=== PATIENT | female | born 1990 | race Caucasian/White ===

== ENCOUNTER → 2017-04-17 | Outpatient (CLI) | payer OTHER ==
[~2017-04-17] MED LIST: APRI28 PO; CEPH-571 PO; OMEP40CA41 PO; ONDA4TAB10 SL; ONDA4TAB7 SL; POTTAB2 PO; PRLSR20 PO; SULF800T23 PO
== END | disposition home or self-care (01) ==
LOC: C.LAB 23:44
DX: Z02.83 Encounter for blood-alcohol and blood-drug test (principal)

== ENCOUNTER 2017-05-14 19:05 | Emergency (ER) | payer SELFPAY ==
[~2017-05-14] VITALS: Ht 160 cm; Wt 49.3 kg
[~2017-05-14 19:05] MED LIST changes: -CEPH-571 PO; -OMEP40CA41 PO; -ONDA4TAB10 SL; -POTTAB2 PO; -SULF800T23 PO
[2017-05-14 19:06] VITALS: TEMP 36.3; Ht 160 cm; Wt 49.3 kg
[2017-05-14] MEDS ORDERED: ONDANSETRON INJ 2 MG/ML 2 ML VIAL IV STA (19:20)
[2017-05-14] MEDS ORDERED: KETOROLAC TROMETHAMINE 30 MG/ML VIAL IV STA (19:20)
[2017-05-14] MEDS ORDERED: CEFTRIAXONE SOD INJ 1 GM ADDVIAL IV STA (19:20)
[2017-05-14] MEDS ORDERED: SODIUM CHLORIDE 0.9% 1000ML 1,000 ML IV STA (19:20)
--- NOTE | 2017-05-14 19:35 | EMERGENCY ROOM VISIT NOTE ---
History Report prepared by Andree: Calderon Humphrey Under the Supervision of: Dr. Brett Brown M.D. First contact with patient: 19:13 Chief Complaint: URINARY SYMPTOMS Stated Complaint: KIDNEY INFECTION, NON STOP VOMITING History of Present Illness The patient is a 27 year old female who presents to the Emergency Room with complaints of constant lower back pain starting three days ago. She rates her discomfort as a 10/10 in severity. She states that she took Ibuprofen for her symptoms, but denies any relief of symptoms. The patient states that she has been vomiting starting three days ago as well. She reports that she has also been experiencing a burning sensation whenever she urinates. She states that she went to [facility] today where they sent her here due to a possible kidney infection. The patient reports that her LNMP was three weeks ago. She denies a possible , tampon retention, and abdominal pain. Source of History: patient Onset: three days ago Position: back (lower) Symptom Intensity: 10/10 Timing: constant Modifying Factors (Relieving): ibuprofen Associated Symptoms: + nausea, + vomiting, + urinary symptoms, No abdominal pain Review of Systems See HPI for pertinent positives & negatives. A total of 10 systems reviewed and were otherwise negative. Past Medical & Surgical Medical Problems: (1) ESOPHAGEAL REFLUX (2) TOBACCO USE DISORDER Family History Cancer Heart disease Hypertension Social History Smoking Status: Current Every Day Smoker Alcohol Use: occasionally Marital Status: in relationship Occupation Status: employed, [employer] student Current/Historical Medications Scheduled Ondasetron Odt (Zofran Odt), 4 MG SL Q6H Sulfa/Trimethoprim (Bactrim Ds 800MG/160MG), 1 TAB PO BID Allergies Coded Allergies: No Known Allergies (Unverified , 03/23/12) Physical Exam Vital Signs Date Time Temp Pulse Resp B/P (MAP) Pulse Ox O2 Delivery O2 Flow Rate FiO2 05/14/17 21:18 62 18 118/60 97 05/14/17 20:34 84 18 118/70 05/14/17 19:38 100 05/14/17 19:06 36.3 126 18 132/77 95 Room Air Physical Exam GENERAL: Patient is a healthy-appearing well-nourished 27 year old female. HEAD: Normocephalic atraumatic EYES: Ocular movements intact pupils equal and react to light OROPHARYNX mucous membranes are moist no exudates present no erythema or edema present NECK: Supple no nuchal rigidity CHEST: Good equal expansion LUNGS: Clear and equal to auscultation CARDIAC: Normal S1 and S2 ABDOMEN: Soft nontender no guarding BACK: Positive right CVA tenderness EXTREMITIES: No pain upon palpation normal muscle strength in all groups no clubbing cyanosis or edema NEURO: Patient is following commands and answering questions appropriately. Alert and oriented x3 Cranial Nerves 2-12 grossly intact Medical Decision & Procedures ER Provider Diagnostic Interpretation: Radiology results as stated below per my review and radiologist interpretation: (RENAL)RETROPERITONEA COMP HISTORY: Pain Pt c/o b/l flank pain COMPARISON: None. FINDINGS: Right kidney: Maximum dimension of 1.4 cm. No evidence for hydronephrosis. Normal corticomedullary differentiation and cortical thickness. Left kidney: Maximum dimension 10.7 cm. No evidence for hydronephrosis. Normal corticomedullary differentiation and cortical thickness. Bladder: No bladder wall thickening. The bilateral ureteral jets were identified. IMPRESSION: Normal renal ultrasound. The above report was generated using voice recognition software. It may contain grammatical, syntax or spelling errors. Electronically signed by: Betito Mcmullen M.D. 05/14/2017 8:28 PM Dictated Date/Time: 05/14/2017 8:27 PM KUB CLINICAL HISTORY: Pt c/o b/l flank pain pain COMPARISON STUDY: No previous studies for comparison. FINDINGS: The soft tissues, psoas shadows, renal outlines and intestinal gas pattern appear normal. There is no evidence for bowel obstruction. No abnormal abdominal calcifications are seen. IMPRESSION: Normal study. The above report was generated using voice recognition software. It may contain grammatical, syntax or spelling errors. Electronically signed by: Betito Mcmullen M.D. 05/14/2017 8:36 PM Dictated Date/Time: 05/14/2017 8:36 PM Laboratory Results 05/14/17 19:28 Red Blood Count 4.54, Mean Corpuscular Volume 94.7, Mean Corpuscular Hemoglobin 33.0, Mean Corpuscular Hemoglobin Concent 34.9, Mean Platelet Volume 10.8, Neutrophils (%) (Auto) 84.9, Lymphocytes (%) (Auto) 4.1, Monocytes (%) (Auto) 10.6, Eosinophils (%) (Auto) 0.0, Basophils (%) (Auto) 0.1, Neutrophils # (Auto ) 17.55, Lymphocytes # (Auto) 0.85, Monocytes # (Auto) 2.20, Eosinophils # (Auto ) 0.00, Basophils # (Auto) 0.02 05/14/17 19:28 Test 05/14/17 19:15 05/14/17 19:28 Urine Color DK YELLOW Urine Appearance CLOUDY (CLEAR) Urine pH 5.5 (4.5-7.5) Urine Specific [place] 1.016 (1.000-1.030) Urine Protein 2+ (NEG) Urine Glucose (UA) NEG (NEG) Urine Ketones 3+ (NEG) Urine Occult Blood 2+ (NEG) Urine Nitrite NEG (NEG) Urine Bilirubin NEG (NEG) Urine Urobilinogen NEG (NEG) Urine Leukocyte Esterase SMALL (NEG) Urine WBC (Auto) >30 /hpf (0-5) Urine RBC (Auto) 10-30 /hpf (0-4) Urine Hyaline Casts (Auto) 10-30 /lpf (0-5) Urine Epithelial Cells (Auto) >30 /lpf (0-5) Urine Bacteria (Auto) NEG (NEG) Urine Yeast (Auto) (NONE PRSENT) White Blood Count 20.69 K/uL (4.8-10.8) Red Blood Count 4.54 M/uL (4.2-5.4) Hemoglobin 15.0 g/dL (12.0-16.0) Hematocrit 43.0 % (37-47) Mean Corpuscular Volume 94.7 fL (80-100) Mean Corpuscular Hemoglobin 33.0 pg (25-34) Mean Corpuscular Hemoglobin Concent 34.9 g/dl (32-36) Platelet Count 268 K/uL (130-400) Mean Platelet Volume 10.8 fL (7.4-10.4) Neutrophils (%) (Auto) 84.9 % Lymphocytes (%) (Auto) 4.1 % Monocytes (%) (Auto) 10.6 % Eosinophils (%) (Auto) 0.0 % Basophils (%) (Auto) 0.1 % Neutrophils # (Auto) 17.55 K/uL (1.4-6.5) Lymphocytes # (Auto) 0.85 K/uL (1.2-3.4) Monocytes # (Auto) 2.20 K/uL (0.11-0.59) Eosinophils # (Auto) 0.00 K/uL (0-0.5) Basophils # (Auto) 0.02 K/uL (0-0.2) RDW Standard Deviation 39.7 fL (36.4-46.3) RDW Coefficient of Variation 11.6 % (11.5-14.5) Immature Granulocyte % (Auto) 0.3 % Immature Granulocyte # (Auto) 0.07 K/uL (0.00-0.02) Anion Gap 12.0 mmol/L (3-11) Est Creatinine Clear Calc Drug Dose 80.6 ml/min Estimated GFR () 113.6 Estimated GFR (Non- 98.0 BUN/Creatinine Ratio 22.8 (10-20) Calcium Level 9.8 mg/dl (8.5-10.1) Total Bilirubin 0.9 mg/dl (0.2-1) Direct Bilirubin 0.3 mg/dl (0-0.2) Aspartate Amino Transf (AST/SGOT) 21 U/L (15-37) Alanine Aminotransferase (ALT/SGPT) 33 U/L (12-78) Alkaline Phosphatase 89 U/L (45-117) Total Protein 8.5 gm/dl (6.4-8.2) Albumin 3.7 gm/dl (3.4-5.0) Lipase 127 U/L (73-393) Labs reviewed by ED physician. Medications Administered Medications (Trade) Dose Ordered Sig/Sydnie Route Start Time Stop Time Status Last Admin Dose Admin Sodium Chloride 1,000 ml @ 999 mls/hr Q1H1M STAT IV 05/14/17 19:20 05/14/17 20:20 DC 05/14/17 19:41 999 MLS/HR Ketorolac Tromethamine (Toradol Inj) 30 mg NOW STAT IV 05/14/17 19:20 05/14/17 19:23 DC 05/14/17 19:42 30 MG Ceftriaxone Sodium (Rocephin Inj) 1 gm NOW STAT IV 05/14/17 19:20 05/14/17 19:23 DC 05/14/17 19:41 1 GM Ondansetron HCl (Zofran Inj) 4 mg NOW STAT IV 05/14/17 19:20 05/14/17 19:23 DC 05/14/17 19:42 4 MG Acetaminophen (Tylenol Tab) 1,000 mg NOW STAT PO 05/14/17 19:56 05/14/17 19:57 DC 05/14/17 20:34 1,000 MG Trimethoprim/ Sulfamethoxazole (Septra Ds 800/ 160MG Tab) 1 tab NOW STAT PO 05/14/17 19:56 05/14/17 19:57 DC 05/14/17 19:56 1 TAB Ondansetron HCl (ZOFRAN ODT 4MG Home Pack) 1 homepack UD STAT PO 05/14/17 20:50 05/14/17 20:52 DC 05/14/17 21:14 1 HOMEPACK Trimethoprim/ Sulfamethoxazole (Sulfameth/ Trimeth Ds 800/ 160MG Home Pack) 1 homepack UD ONCE PO 05/14/17 21:00 05/14/17 21:01 DC 05/14/17 21:14 1 HOMEPACK ED Course 1919: Ordered Zofran Injection 4 mg IV, Rocephin Injection 1 gm IV, Toradol Injection 30 mg IV, Sodium Chloride 1000 ml @ 999 mls/hr IV. 1921: Past medical records reviewed. The patient was evaluated in room A12B. A complete history and physical examination was performed. 1955: Ordered Trimethoprim/Sulfamethoxazole 1 tab PO, Tylenol Tab 1000 mg PO. 2049: Ordered Ondansetron HCl 1 homepack PO. 2051: Upon reexamination the patient is doing well. I discussed results and treatment plan with the patient. She verbalizes agreement and understanding. The patient is ready for discharge. 2099: Ordered Trimethoprim/Sulfamethoxazole 1 homepack PO. Medical Decision The differential diagnosis includes etiologies such as appendicitis, diverticulitis, PUD, biliary pathology, UTI, pancreatitis, obstruction, mesenteric ischemia, aortic pathology, infections, inflammatory bowel disease, renal colic, as well as others were entertained. This is a 27-year-old female presents emergency department complaining of urinary symptoms. The patient is tachycardic upon arrival to emergency department therefore an IV was established, patient given normal saline bolus, Toradol, Rocephin. Repeat examination revealed much improved in the patient's symptoms. Patient was sent for KUB as well as renal ultrasound. This did not show any acute process. The patient is feeling much better after the pain medication. Serial abdominal examinations were performed on the patient in the emergency department and at no time did the patient exhibited a surgical abdomen. She was able tolerate Tylenol as well as Bactrim in the emergency department therefore I feel she is well enough to be discharged home. Her tachycardia also improved. I stressed the need to return if she is unable to keep her medications down. Patient was in agreement with treatment plan. Medication Reconcilliation Current Medication List: was personally reviewed by me Blood Pressure Screening Patient's blood pressure: Normal blood pressure Impression Primary Impression: Urinary tract infection Scribe Attestation The scribe's documentation has been prepared under my direction and personally reviewed by me in its entirety. I confirm that the note above accurately reflects all work, treatment, procedures, and medical decision making performed by me. Departure Information Dispostion Home / Self-Care Prescriptions Ondasetron Odt (ZOFRAN ODT) 4 Mg Tab 4 MG SL Q6H for Nausea, #6 TAB Prov: Brett Brown MD 05/14/17 Sulfa/Trimethoprim (Bactrim Ds 800MG/160MG) Tab 1 TAB PO BID for 10 Days, #20 TAB Prov: Brett Brown MD 05/14/17 Referrals No Doctor, Assigned (PCP) Forms HOME CARE DOCUMENTATION FORM, IMPORTANT VISIT INFORMATION Patient Instructions ED UTI Cystitis Female, My [facility] Additional Instructions Take 600 mg Ibuprofen every 6 hours Take 1000 mg TYlenol every 6 hours Increase fluids next 48 hours Culture results are usually available in approx 48 hours You have been examined and treated today on an emergency basis only. This is not a substitute for, or an effort to provide, complete comprehensive medical care. It is impossible to recognize and treat all injuries or illnesses in a single emergency department visit. It is therefore important that you follow up closely with [facility]. Call as soon as possible for an appointment. Thank you for your time and consideration. I look forward to speaking with you again soon. Please don't hesitate to call us if you have any questions. Problem Qualifiers Primary Impression: Urinary tract infection Urinary tract infection type: acute cystitis Hematuria presence: without hematuria Qualified Codes: N30.00 - Acute cystitis without hematuria
[2017-05-14 19:43] LABS: BASO % 0.1 %; BASO ABS # 0.02 K/uL (0-0.2); COMPLETE YES; IG% 0.3 %; LYMPH % 4.1 %; LYMPH ABS # 0.85 K/uL (1.2-3.4); MEAN CELL VOLUME 94.7 fL (80-100); MEAN CORPUSCULAR HGB CONC 34.9 g/dl (32-36); MEAN PLATELET VOLUME 10.8 fL (7.4-10.4); MONO % 10.6 %; NEUT % 84.9 %; PLATELET COUNT 268 K/uL (130-400); RED BLOOD COUNT 4.54 M/uL (4.2-5.4); WHITE BLOOD COUNT 20.69 K/uL (4.8-10.8)
[2017-05-14 19:53] LABS: URINE APPEARANCE CLOUDY (CLEAR); URINE BILIRUBIN NEG (NEG); URINE COLOR DK YELLOW; URINE EPITHELIAL CELL AUTO >30 /lpf (0-5); URINE NITRITE NEG (NEG); URINE PH 5.5 (4.5-7.5); URINE SPECIFIC GRAVITY 1.016 (1.000-1.030); UROBILINOGEN NEG (NEG); ZZUR CULT IF INDIC CLEAN CATCH YES
[2017-05-14 19:54] LABS: MANUAL MICROSCOPIC REQUIRED? NO; REVIEW REQ? YES
[2017-05-14] MEDS ORDERED: ACETAMINOPHEN 500 MG TAB PO STA (19:56)
[2017-05-14] MEDS ORDERED: SULFAMETHOXAZOLE/TRIMETHOPRIM DS 800/160MG TAB PO STA (19:56)
[2017-05-14 20:06] LABS: BUN/CREATININE RATIO 22.8 (10-20); CALCIUM 9.8 mg/dl (8.5-10.1); CREATININE 0.83 mg/dl (0.60-1.20); POTASSIUM 3.3 mmol/L (3.5-5.1)
--- NOTE | 2017-05-14 20:29 | DIAGNOSTIC IMAGING REPORT ---
(RENAL)RETROPERITONEA COMP HISTORY: Pain Pt c/o b/l flank pain COMPARISON: None. FINDINGS: Right kidney: Maximum dimension of 1.4 cm. No evidence for hydronephrosis. Normal corticomedullary differentiation and cortical thickness. Left kidney: Maximum dimension 10.7 cm. No evidence for hydronephrosis. Normal corticomedullary differentiation and cortical thickness. Bladder: No bladder wall thickening. The bilateral ureteral jets were identified. IMPRESSION: Normal renal ultrasound. The above report was generated using voice recognition software. It may contain grammatical, syntax or spelling errors. Electronically signed by: Betito Mcmullen M.D. 05/14/2017 8:28 PM Dictated Date/Time: 05/14/2017 8:27 PM
--- NOTE | 2017-05-14 20:38 | DIAGNOSTIC IMAGING REPORT ---
KUB CLINICAL HISTORY: Pt c/o b/l flank pain pain COMPARISON STUDY: No previous studies for comparison. FINDINGS: The soft tissues, psoas shadows, renal outlines and intestinal gas pattern appear normal. There is no evidence for bowel obstruction. No abnormal abdominal calcifications are seen. IMPRESSION: Normal study. The above report was generated using voice recognition software. It may contain grammatical, syntax or spelling errors. Electronically signed by: Betito Mcmullen M.D. 05/14/2017 8:36 PM Dictated Date/Time: 05/14/2017 8:36 PM
[2017-05-14] MEDS ORDERED: ONDANSETRON HOME PACK 4MG OD TAB PO STA (20:50)
[2017-05-14] MEDS ORDERED: ONDA4TAB10 SL (20:53)
[2017-05-14] MEDS ORDERED: SULF800T23 PO (20:53)
[2017-05-14] MEDS ORDERED: SEPTRA DS HOME PACK 1 EA VIAL PO ONE (21:00)
[2017-05-14 21:18] VITALS: BP 118/60; PULSE 62; O2SAT 97
== END 2017-05-14 21:20 | disposition home or self-care (01) ==
LOC: C.EDB 19:06 → C.EDA 21:20
DX: N30.00 Acute cystitis without hematuria (principal); K21.9 Gastro-esophageal reflux disease without esophagitis; F17.210 Nicotine dependence, cigarettes, uncomplicated; Z80.9 Family history of malignant neoplasm, unspecified; Z82.49 Family history of ischemic heart disease and other diseases of the circulatory system

== ENCOUNTER 2017-05-15 16:27 | Observation (INO) | payer BC, OTHER ==
[~2017-05-15] VITALS: Ht 157.5 cm; Wt 50.4 kg
[~2017-05-15 16:27] MED LIST changes: -APRI28 PO; +ONDA4TAB10 SL; -ONDA4TAB7 SL; -PRLSR20 PO; +SULF800T23 PO
[2017-05-15] MEDS ORDERED: SODIUM CHLORIDE 0.9% 1000ML 1,000 ML IV ONE (17:15)
[2017-05-15] MEDS ORDERED: ONDANSETRON INJ 2 MG/ML 2 ML VIAL IV STA (17:35)
[2017-05-15] MEDS ORDERED: KETOROLAC TROMETHAMINE 30 MG/ML VIAL IV STA (17:35)
[2017-05-15] MEDS ORDERED: CEFTRIAXONE SOD INJ 1 GM ADDVIAL IV STA (17:35)
[2017-05-15 17:36] LABS: URINE APPEARANCE CLEAR (CLEAR); URINE BILIRUBIN NEG (NEG); URINE COLOR YELLOW; URINE EPITHELIAL CELL AUTO >30 /lpf (0-5); URINE NITRITE NEG (NEG); URINE PH 8.5 (4.5-7.5); URINE SPECIFIC GRAVITY 1.015 (1.000-1.030); UROBILINOGEN POS (NEG); ZZUR CULT IF INDIC CLEAN CATCH YES
[2017-05-15] MEDS ORDERED: CAPSAICIN CR 0.075% 60 GM TUBE EXT ONE (17:45)
[2017-05-15 17:57] LABS: MANUAL MICROSCOPIC REQUIRED? NO; REVIEW REQ? NO; SULFASALICYLIC ACID POS (NEG)
[2017-05-15 18:09] LABS: BASO % 0.1 %; BASO ABS # 0.02 K/uL (0-0.2); COMPLETE YES; EOS % 0.1 %; HEMATOCRIT 39.9 % (37-47); IG% 0.4 %; LYMPH % 5.9 %; LYMPH ABS # 0.94 K/uL (1.2-3.4); MEAN CELL VOLUME 93.4 fL (80-100); MEAN CORPUSCULAR HEMOGLOBIN 32.6 pg (25-34); MEAN CORPUSCULAR HGB CONC 34.8 g/dl (32-36); MEAN PLATELET VOLUME 10.8 fL (7.4-10.4); MONO % 7.1 %; NEUT % 86.4 %; PLATELET COUNT 265 K/uL (130-400); RED BLOOD COUNT 4.27 M/uL (4.2-5.4); WHITE BLOOD COUNT 15.99 K/uL (4.8-10.8)
--- NOTE | 2017-05-15 18:10 | EMERGENCY ROOM VISIT NOTE ---
History First contact with patient: 16:52 Chief Complaint: VOMITING Stated Complaint: NON-STOP VOMITING,REVISIT Nursing Triage Summary: Vomiting started Night. Seen here in ED yesterday for UTI. Started feeling better yesterday. Today around 0700 began vomiting non-stop. Unable to keep food or fluids down. History of Present Illness The patient is a 27 year old female who presents to the Emergency Room with complaints of intractable vomiting. The patient was seen yesterday after suffering from three days of lower back pain and vomiting. She had received Rocephin and was discharged on Bactrim and Zofran. She has been taking her Bactrim as ordered. She notes that she was feeling well overnight and then this morning at approx 0700 she was once again suffering from intractable vomiting. She did not take her antibiotics today because of the vomiting. She has not been able to eat all day. She does not reflux from her vomiting however no chest pain. She denies any hematuria, change in bm, blood in stool, abdominal pain, fever, rash. She does note that she does smoke approx 1/2 PPD of cigarettes and approx 5 Grams of marijuana/ week. On review of the UA culture it revealed > 3 bacteria high count for probable skin joce and no sensitivities pending. There has actually been significant improvement in the back pain from yesterday. Review of Systems a 10 point review of systems was completed and was negative aside from above Past Medical/Surgical History Medical Problems: (1) ESOPHAGEAL REFLUX (2) TOBACCO USE DISORDER Family History Cancer Heart disease Hypertension Social History Smoking Status: Current Every Day Smoker Smokeless Tobacco Use: No Alcohol Use: occasionally Drug Use: marijuana (Heavy use, at least 5grams/ week) Marital Status: in relationship Housing Status: lives with significant other Occupation Status: employed Current/Historical Medications Scheduled Ondasetron Odt (Zofran Odt), 4 MG SL Q6H Sulfa/Trimethoprim (Bactrim Ds 800MG/160MG), 1 TAB PO BID Physical Exam Vital Signs Date Time Temp Pulse Resp B/P (MAP) Pulse Ox O2 Delivery O2 Flow Rate FiO2 05/15/17 19:54 64 18 132/80 99 Room Air 05/15/17 18:36 83 124/80 97 Room Air 05/15/17 16:48 36.5 92 20 121/82 99 Room Air Physical Exam General: ambulatory, tearful, thin Skin: no rashes noted, no suspicious lesions, no areas of inflammations/ lacerations/ erythema noted CVS: S1/ S2 noted, RRR, no rubs/ murmurs noted, no cyanosis RVS: Clear throughout bilaterally, not in acute respiratory distress, no wheezing/ rales/ crackles noted ENT: no erythema/ injection/ ulcerations noted in the pharynx, no lymphadenopathy Neck: inspection WNL, full ROM of neck, no bruits noted ABD: BSx4, mild pain/ tenderness on palpation in lower abd without rebound, no organomegaly, negative murphys, psoas, Rovsing, CVA tenderness MSK: inspection of all limbs WNL, motor and sensation intact in all limbs, no swelling/ pain on palpation of joints NVS: PERRL, EOMI, sensation intact in all extremities Lymph: No lymphadenopathy palpable Medical Decision & Procedures Laboratory Results 05/15/17 17:38 Red Blood Count 4.27, Mean Corpuscular Volume 93.4, Mean Corpuscular Hemoglobin 32.6, Mean Corpuscular Hemoglobin Concent 34.8, Mean Platelet Volume 10.8, Neutrophils (%) (Auto) 86.4, Lymphocytes (%) (Auto) 5.9, Monocytes (%) (Auto) 7.1, Eosinophils (%) (Auto) 0.1, Basophils (%) (Auto) 0.1, Neutrophils # (Auto) 13.83, Lymphocytes # (Auto) 0.94, Monocytes # (Auto) 1.13, Eosinophils # (Auto) 0.01, Basophils # (Auto) 0.02 05/15/17 17:38 Test 05/15/17 17:20 05/15/17 17:38 05/15/17 17:43 05/15/17 18:35 Urine Color YELLOW Urine Appearance CLEAR (CLEAR) Urine pH 8.5 (4.5-7.5) Urine Specific [place] 1.015 (1.000-1.030) Urine Protein 1+ (NEG) Urine Glucose (UA) NEG (NEG) Urine Ketones 2+ (NEG) Urine Occult Blood NEG (NEG) Urine Nitrite NEG (NEG) Urine Bilirubin NEG (NEG) Urine Urobilinogen POS (NEG) Urine Leukocyte Esterase MODERATE (NEG) Urine WBC (Auto) 10-30 /hpf (0-5) Urine RBC (Auto) 0-4 /hpf (0-4) Urine Hyaline Casts (Auto) 1-5 /lpf (0-5) Urine Epithelial Cells (Auto) >30 /lpf (0-5) Urine Bacteria (Auto) NEG (NEG) Urine Test NEG (NEG) White Blood Count 15.99 K/uL (4.8-10.8) Red Blood Count 4.27 M/uL (4.2-5.4) Hemoglobin 13.9 g/dL (12.0-16.0) Hematocrit 39.9 % (37-47) Mean Corpuscular Volume 93.4 fL (80-100) Mean Corpuscular Hemoglobin 32.6 pg (25-34) Mean Corpuscular Hemoglobin Concent 34.8 g/dl (32-36) Platelet Count 265 K/uL (130-400) Mean Platelet Volume 10.8 fL (7.4-10.4) Neutrophils (%) (Auto) 86.4 % Lymphocytes (%) (Auto) 5.9 % Monocytes (%) (Auto) 7.1 % Eosinophils (%) (Auto) 0.1 % Basophils (%) (Auto) 0.1 % Neutrophils # (Auto) 13.83 K/uL (1.4-6.5) Lymphocytes # (Auto) 0.94 K/uL (1.2-3.4) Monocytes # (Auto) 1.13 K/uL (0.11-0.59) Eosinophils # (Auto) 0.01 K/uL (0-0.5) Basophils # (Auto) 0.02 K/uL (0-0.2) RDW Standard Deviation 39.0 fL (36.4-46.3) RDW Coefficient of Variation 11.6 % (11.5-14.5) Immature Granulocyte % (Auto) 0.4 % Immature Granulocyte # (Auto) 0.06 K/uL (0.00-0.02) Anion Gap 10.0 mmol/L (3-11) Est Creatinine Clear Calc Drug Dose 85.5 ml/min Estimated GFR () 118.8 Estimated GFR (Non- 102.5 BUN/Creatinine Ratio 16.9 (10-20) Calcium Level 9.3 mg/dl (8.5-10.1) Phosphorus Level 1.6 mg/dl (2.5-4.9) Magnesium Level 2.1 mg/dl (1.8-2.4) Total Bilirubin 0.5 mg/dl (0.2-1) Aspartate Amino Transf (AST/SGOT) 19 U/L (15-37) Alanine Aminotransferase (ALT/SGPT) 25 U/L (12-78) Alkaline Phosphatase 71 U/L (45-117) Total Protein 7.3 gm/dl (6.4-8.2) Albumin 3.2 gm/dl (3.4-5.0) Globulin 4.1 gm/dl (2.5-4.0) Albumin/Globulin Ratio 0.8 (0.9-2) Lipase 119 U/L (73-393) Lactic Acid Level 0.8 mmol/L (0.4-2.0) Medications Administered Medications (Trade) Dose Ordered Sig/Sydnie Route Start Time Stop Time Status Last Admin Dose Admin Sodium Chloride 1,000 ml @ 999 mls/hr Q1H1M ONCE IV 05/15/17 17:15 05/15/17 18:15 DC 05/15/17 17:53 999 MLS/HR Capsaicin (Zostrix Crm) 1 appln NOW ONCE EXT 05/15/17 17:45 05/15/17 17:46 DC 05/15/17 17:57 1 APPLN Ceftriaxone Sodium (Rocephin Inj) 1 gm NOW STAT IV 05/15/17 17:35 05/15/17 17:36 DC 05/15/17 17:55 1 GM Ondansetron HCl (Zofran Inj) 4 mg NOW STAT IV 05/15/17 17:35 05/15/17 17:36 DC 05/15/17 17:56 4 MG Ketorolac Tromethamine (Toradol Inj) 30 mg NOW STAT IV 05/15/17 17:35 05/15/17 17:36 DC 05/15/17 17:55 30 MG ED Course 1700: Patient was evaluated by resident and appropriate w/u was ordered 1715: Zofran 4 mg IV, Toradol 30 mg IV, NSS 999/h, Capsaicin ext 1745: Cipro 400 mg x 1 administered 1800: 40 meq of KCL PO and 15 mmol of pot phos was administered 1923: Discussed case with Dr [place], patient will be further evaluated by hospitalist Medical Decision Differential diagnosis: Etiologies such as gastroenteritis, food borne illness, infections, appendicitis , diverticulitis, inflammatory bowel disease, obstruction, GI bleed, biliary pathology, as well as others were entertained. This is a 27 yo f that is presenting to us with intractable vomiting after having been treated for probable UTI. CBC reflected an improvement in the leukocytosis from 20 to 15 as well as an improving left shift which could reveal an overall improving UTI even though there was no significant bacteria noted on the previous culture. There was concern for her intractable vomiting however as she has been unable to eat or drink and her BMP was reflective of hypokalemia and hypophosphatemia. Patient was repleted in the ED however we did discuss d/c home and admission with the patient and as she continues to suffer from intractable vomiting from UTI/ illness vs cannabinoid hyperemesis syndrome patient will be evaluated by hospitalist. Head Trauma GCS Score: 15 Blood Pressure Screening Patient's blood pressure: Normal blood pressure Impression Primary Impression: Vomiting Additional Impressions: Hypokalemia Dehydration Departure Information Dispostion Being Evaluated By Hospitalist Condition FAIR Referrals No Doctor, Assigned (PCP) Patient Instructions [facility] Problem Qualifiers Primary Impression: Vomiting Vomiting type: bilious vomiting Nausea presence: with nausea Qualified Codes: R11.14 - Bilious vomiting
[2017-05-15] MEDS ORDERED: CIPROFLOXACIN 400MG / 200ML D5W IV STA (18:11)
[2017-05-15 18:29] LABS: BUN/CREATININE RATIO 16.9 (10-20); CALCIUM 9.3 mg/dl (8.5-10.1); CREATININE 0.8 mg/dl (0.60-1.20); MAGNESIUM 2.1 mg/dl (1.8-2.4)
[2017-05-15 18:32] LABS: ALB/GLOB RATIO 0.8 (0.9-2); PHOSPHORUS 1.6 mg/dl (2.5-4.9)
[2017-05-15] MEDS ORDERED: POTASSIUM CHLORIDE 10 MEQ TABCR PO STA (18:34)
[2017-05-15] MEDS ORDERED: POTASSIUM PHOS 3 MMOL/1 ML INFUSION IV STA ×2 (18:34→19:41)
--- NOTE | 2017-05-15 18:58 | EMERGENCY ROOM VISIT NOTE ---
ED Visit Note First contact with patient: 16:52 Resident Physician Supervision Note: I interviewed and examined the patient. Discussed with Dr. Kulkarni and agree with findings and plan as documented in the note. Documented By: Brett Brown Problem List Medical Problems: (1) ESOPHAGEAL REFLUX Status: Chronic (2) TOBACCO USE DISORDER Status: Chronic Current/Historical Medications Scheduled Ondasetron Odt (Zofran Odt), 4 MG SL Q6H Sulfa/Trimethoprim (Bactrim Ds 800MG/160MG), 1 TAB PO BID Allergies Coded Allergies: No Known Allergies (Unverified , 03/23/12) Vital Signs Date Time Temp Pulse Resp B/P (MAP) Pulse Ox O2 Delivery O2 Flow Rate FiO2 05/15/17 18:36 83 124/80 97 Room Air 05/15/17 16:48 36.5 92 20 121/82 99 Room Air Laboratory Results 05/15/17 17:38 Red Blood Count 4.27, Mean Corpuscular Volume 93.4, Mean Corpuscular Hemoglobin 32.6, Mean Corpuscular Hemoglobin Concent 34.8, Mean Platelet Volume 10.8, Neutrophils (%) (Auto) 86.4, Lymphocytes (%) (Auto) 5.9, Monocytes (%) (Auto) 7.1, Eosinophils (%) (Auto) 0.1, Basophils (%) (Auto) 0.1, Neutrophils # (Auto) 13.83, Lymphocytes # (Auto) 0.94, Monocytes # (Auto) 1.13, Eosinophils # (Auto) 0.01, Basophils # (Auto) 0.02 05/15/17 17:38 Test 05/15/17 17:20 05/15/17 17:38 05/15/17 17:43 05/15/17 18:35 Urine Color YELLOW Urine Appearance CLEAR (CLEAR) Urine pH 8.5 (4.5-7.5) Urine Specific [place] 1.015 (1.000-1.030) Urine Protein 1+ (NEG) Urine Glucose (UA) NEG (NEG) Urine Ketones 2+ (NEG) Urine Occult Blood NEG (NEG) Urine Nitrite NEG (NEG) Urine Bilirubin NEG (NEG) Urine Urobilinogen POS (NEG) Urine Leukocyte Esterase MODERATE (NEG) Urine WBC (Auto) 10-30 /hpf (0-5) Urine RBC (Auto) 0-4 /hpf (0-4) Urine Hyaline Casts (Auto) 1-5 /lpf (0-5) Urine Epithelial Cells (Auto) >30 /lpf (0-5) Urine Bacteria (Auto) NEG (NEG) Urine Test NEG (NEG) White Blood Count 15.99 K/uL (4.8-10.8) Red Blood Count 4.27 M/uL (4.2-5.4) Hemoglobin 13.9 g/dL (12.0-16.0) Hematocrit 39.9 % (37-47) Mean Corpuscular Volume 93.4 fL (80-100) Mean Corpuscular Hemoglobin 32.6 pg (25-34) Mean Corpuscular Hemoglobin Concent 34.8 g/dl (32-36) Platelet Count 265 K/uL (130-400) Mean Platelet Volume 10.8 fL (7.4-10.4) Neutrophils (%) (Auto) 86.4 % Lymphocytes (%) (Auto) 5.9 % Monocytes (%) (Auto) 7.1 % Eosinophils (%) (Auto) 0.1 % Basophils (%) (Auto) 0.1 % Neutrophils # (Auto) 13.83 K/uL (1.4-6.5) Lymphocytes # (Auto) 0.94 K/uL (1.2-3.4) Monocytes # (Auto) 1.13 K/uL (0.11-0.59) Eosinophils # (Auto) 0.01 K/uL (0-0.5) Basophils # (Auto) 0.02 K/uL (0-0.2) RDW Standard Deviation 39.0 fL (36.4-46.3) RDW Coefficient of Variation 11.6 % (11.5-14.5) Immature Granulocyte % (Auto) 0.4 % Immature Granulocyte # (Auto) 0.06 K/uL (0.00-0.02) Anion Gap 10.0 mmol/L (3-11) Est Creatinine Clear Calc Drug Dose 85.5 ml/min Estimated GFR () 118.8 Estimated GFR (Non- 102.5 BUN/Creatinine Ratio 16.9 (10-20) Calcium Level 9.3 mg/dl (8.5-10.1) Phosphorus Level 1.6 mg/dl (2.5-4.9) Magnesium Level 2.1 mg/dl (1.8-2.4) Total Bilirubin 0.5 mg/dl (0.2-1) Aspartate Amino Transf (AST/SGOT) 19 U/L (15-37) Alanine Aminotransferase (ALT/SGPT) 25 U/L (12-78) Alkaline Phosphatase 71 U/L (45-117) Total Protein 7.3 gm/dl (6.4-8.2) Albumin 3.2 gm/dl (3.4-5.0) Globulin 4.1 gm/dl (2.5-4.0) Albumin/Globulin Ratio 0.8 (0.9-2) Lipase 119 U/L (73-393) Medications Administered Medications (Trade) Dose Ordered Sig/Sydnie Route Start Time Stop Time Status Last Admin Dose Admin Sodium Chloride 1,000 ml @ 999 mls/hr Q1H1M ONCE IV 05/15/17 17:15 05/15/17 18:15 DC 05/15/17 17:53 999 MLS/HR Capsaicin (Zostrix Crm) 1 appln NOW ONCE EXT 05/15/17 17:45 05/15/17 17:46 DC 05/15/17 17:57 1 APPLN Ceftriaxone Sodium (Rocephin Inj) 1 gm NOW STAT IV 05/15/17 17:35 05/15/17 17:36 DC 05/15/17 17:55 1 GM Ondansetron HCl (Zofran Inj) 4 mg NOW STAT IV 05/15/17 17:35 05/15/17 17:36 DC 05/15/17 17:56 4 MG Ketorolac Tromethamine (Toradol Inj) 30 mg NOW STAT IV 05/15/17 17:35 05/15/17 17:36 DC 05/15/17 17:55 30 MG Departure Information Impression Primary Impression: Vomiting Additional Impressions: Dehydration Hypokalemia Dispostion Being Evaluated By Hospitalist Condition FAIR Referrals No Doctor, Assigned (PCP) Patient Instructions [facility] Problem Qualifiers
[2017-05-15] MEDS ORDERED: ACETAMINOPHEN 325 MG TAB PO PRN (19:45)
[2017-05-15] MEDS ORDERED: ONDANSETRON INJ 2 MG/ML 2 ML VIAL IV PRN (19:45)
[2017-05-15] MEDS ORDERED: ACETAMINOPHEN IV 100 ML IV PRN (19:45)
[2017-05-15] MEDS ORDERED: DiphenhydrAMINE HCL 50 MG/ML VIAL IV PRN (20:00)
[2017-05-15] MEDS ORDERED: IV FLUIDS COMPLETED PRN (20:15)
[2017-05-15] MEDS ORDERED: POTASSIUM PHOSPHATE INJ 24 MMOL in SODIUM CHLORIDE 0.9% 500ML 500 ML IV ONE (20:15)
--- NOTE | 2017-05-15 20:35 | History and Physical ---
History & Physical Date & Time of Service: May 15, 2017 at 20:05 Chief Complaint: Non-Stop Vomiting,Revisit Primary Care Physician: No Doctor, Assigned History of Present Illness Source: patient Ms. Grijalva is a 27 y/o female with PMHx of GERD, Tobacco Use, and Marijuana Use who presents to the ED for intractable vomiting that started this AM. Patient was evaluated yesterday in the ED for c/o urinary symptoms and intractable vomiting that started 3 days [employer]ESS T[employer]. She was treated with Rocephin and D/C'd on Bactrim and Zofran. UCx with multiple organisms and likely skin contamination. She also c/o back pain that has improved. She states she felt well enough to return home yesterday. At 0500 today, patient notes she was nauseous and took a Zofran and went back to sleep. She then woke up around 0700 with vomiting and reports that she couldn't stop but cycles between dry heaves, actual emesis, and the abdominal contractions. Due to vomiting she did not take her Bactrim this AM. So reports resolution of dysuria but notes reduced urine output and dark urine. She does report associated anxiety with emesis but denies significant anxiety leading up to these symptoms. She reports that she does smoke marijuana intermittently but really can't state how much. She reports getting the marijuana from the same source and to her knowledge hasn't utilized synthetics. She states she never gets this response with marijuana. She also reports she intermittently drinks but no significant ETOH consumption prior to symptoms. She denies sick contacts or people with similar symptoms. LMP approx. 3 weeks ago and denies vaginal discharge or gynecological conditions. She has chronic loose stools but denies change in bowel habits or underlying GI conditions. She denies fever/chills, CP, SOB, abdominal pain, constipation, melena/hematochezia. Past Medical/Surgical History Medical Problems: (1) ESOPHAGEAL REFLUX Status: Chronic (2) TOBACCO USE DISORDER Status: Chronic Family History Cancer Heart disease Hypertension Social History Smoking Status: Current Every Day Smoker Smokeless Tobacco Use: No Alcohol Use: socially Drug Use: marijuana (Heavy use, at least 5grams/ week) Marital Status: in relationship Occupational Status: employed (acute care occupational therapist) Immunizations History of Influenza Vaccine: Unknown History of Tetanus Vaccine?: Unknown History of Pneumococcal: Unknown History of Hepatitis B Vaccine: Unknown Multi-Drug Resistant Organisms History of MDRO: No Allergies Coded Allergies: No Known Allergies (Unverified , 03/23/12) Home Medications Scheduled Cephalexin (Keflex), 1 CAP PO BID Omeprazole (Prilosec), 1 CAP PO DAILY Pot Phosphate Monobasic W/ Sod (Phospha 250 Neutral), 1 TAB PO TID Review of Systems Constitutional: No fever, No chills ENT: No nasal symptoms, No sore throat, No trouble swallowing Respiratory: No cough, No shortness of breath Cardiovascular: No chest pain, No palpitations Abdomen: + nausea, + vomiting, No pain, No diarrhea, No constipation, No GI bleeding Musculoskeletal: No swelling, No calf pain Genitourinary - Female: No dysuria, No urinary frequency, No hematuria, No vaginal bleeding, No vaginal discharge Neurologic: No numbness/tingling Hematologic / Lymphatic: No abnormal bleeding/bruising Integumentary: No rash Physical Exam Vital Signs Date Time Temp Pulse Resp B/P (MAP) Pulse Ox O2 Delivery O2 Flow Rate FiO2 05/15/17 19:54 64 18 132/80 99 Room Air 05/15/17 18:36 83 124/80 97 Room Air 05/15/17 16:48 36.5 92 20 121/82 99 Room Air General Appearance: WD/WN, no apparent distress Head: normocephalic, atraumatic Eyes: sclerae normal ENT: hearing grossly normal Neck: supple, trachea midline Respiratory/Chest: lungs clear, normal breath sounds, no respiratory distress, no accessory muscle use Cardiovascular: regular rate, rhythm, no gallop, no murmur Abdomen/GI: normal bowel sounds, non tender, soft Extremities/Musculoskelatal: no calf tenderness, no pedal edema Neurologic/Psych: alert, oriented x 3 Skin: normal color, warm/dry Diagnostics Laboratory Results Results Past 24 Hours Test 05/15/17 17:20 05/15/17 17:38 05/15/17 17:43 05/15/17 18:35 Range/Units Urine Color YELLOW Urine Appearance CLEAR CLEAR Urine pH 8.5 4.5-7.5 Urine Specific [place] 1.015 1.000-1.030 Urine Protein 1+ NEG Urine Glucose (UA) NEG NEG Urine Ketones 2+ NEG Urine Occult Blood NEG NEG Urine Nitrite NEG NEG Urine Bilirubin NEG NEG Urine Urobilinogen POS NEG Urine Leukocyte Esterase MODERATE NEG Urine WBC (Auto) 10-30 0-5 /hpf Urine RBC (Auto) 0-4 0-4 /hpf Urine Hyaline Casts (Auto) 1-5 0-5 /lpf Urine Epithelial Cells (Auto) >30 0-5 /lpf Urine Bacteria (Auto) NEG NEG Urine Test NEG NEG White Blood Count 15.99 4.8-10.8 K/uL Red Blood Count 4.27 4.2-5.4 M/uL Hemoglobin 13.9 12.0-16.0 g/dL Hematocrit 39.9 37-47 % Mean Corpuscular Volume 93.4 80-100 fL Mean Corpuscular Hemoglobin 32.6 25-34 pg Mean Corpuscular Hemoglobin Concent 34.8 32-36 g/dl Platelet Count 265 130-400 K/uL Mean Platelet Volume 10.8 7.4-10.4 fL Neutrophils (%) (Auto) 86.4 % Lymphocytes (%) (Auto) 5.9 % Monocytes (%) (Auto) 7.1 % Eosinophils (%) (Auto) 0.1 % Basophils (%) (Auto) 0.1 % Neutrophils # (Auto) 13.83 1.4-6.5 K/uL Lymphocytes # (Auto) 0.94 1.2-3.4 K/uL Monocytes # (Auto) 1.13 0.11-0.59 K/uL Eosinophils # (Auto) 0.01 0-0.5 K/uL Basophils # (Auto) 0.02 0-0.2 K/uL RDW Standard Deviation 39.0 36.4-46.3 fL RDW Coefficient of Variation 11.6 11.5-14.5 % Immature Granulocyte % (Auto) 0.4 % Immature Granulocyte # (Auto) 0.06 0.00-0.02 K/uL Sodium Level 135 136-145 mmol/L Potassium Level 3.0 3.5-5.1 mmol/L Chloride Level 98 98-107 mmol/L Carbon Dioxide Level 27 21-32 mmol/L Anion Gap 10.0 3-11 mmol/L Blood Urea Nitrogen 14 7-18 mg/dl Creatinine 0.80 0.60-1.20 mg/dl Est Creatinine Clear Calc Drug Dose 85.5 ml/min Estimated GFR () 118.8 Estimated GFR (Non- 102.5 BUN/Creatinine Ratio 16.9 10-20 Random Glucose 115 70-99 mg/dl Calcium Level 9.3 8.5-10.1 mg/dl Phosphorus Level 1.6 2.5-4.9 mg/dl Magnesium Level 2.1 1.8-2.4 mg/dl Total Bilirubin 0.5 0.2-1 mg/dl Aspartate Amino Transf (AST/SGOT) 19 15-37 U/L Alanine Aminotransferase (ALT/SGPT) 25 12-78 U/L Alkaline Phosphatase 71 45-117 U/L Total Protein 7.3 6.4-8.2 gm/dl Albumin 3.2 3.4-5.0 gm/dl Globulin 4.1 2.5-4.0 gm/dl Albumin/Globulin Ratio 0.8 0.9-2 Lipase 119 73-393 U/L Lactic Acid Level 0.8 0.4-2.0 mmol/L Microbiology Results 05/15/17 Blood Culture, Received Pending 05/15/17 Blood Culture, Received Pending 05/15/17 Urine Culture, Received Pending Impression Assessment and Plan Ms. Grijalva is a 27 y/o female with PMHx of GERD, Tobacco Use, and Marijuana Use who presents to the ED for intractable vomiting that started this AM. Urinary Tract Infection: - Leukocytosis improving - UCx from initial visit with multiple organisms and skin joce - repeat obtained in ED but will likely be unremarkable as she has received ABx - Ceftriaxone 1 g IV daily and likely change to Keflex 500 mg BID when tolerating orals Dehydration/Intractable Vomiting/Hypokalemia/Hypophosphatemia: - NSS + 20 mEq KCl at 100 mL/hr - KPhos 24 mmol IV x 1 - BMP and Phos levels in AM Tobacco Use/Marijuana Use: - Consideration for cannabinoid hyperemesis - denies previous episodes with use DVT Prophylaxis: SCDs Code Status: FULL RESUSCITATION Disposition: - Allow clear liquid diet overnight and continue hydration - Likely D/C tomorrow and may finish short Abx course with Keflex 500 mg BID Attending Addendum: I have physically seen and examined this patient, have directed the physician assistants medical activities, and agree with the H&P as noted above with the following exceptions as noted. The patient is awake, alert and oriented 3, well-developed and well-nourished , normocephalic and atraumatic, lying in bed and in no acute distress. HEENT--PERRL, EOMI, mucous membranes and oropharynx dry. Neck--supple, no JVD or bruits, thyroid normal, trachea midline, no adenopathy. Heart--normal S1 and S2, no extra beats, no murmurs, rubs or gallops. Lungs--clear bilaterally with good air movement, no respiratory distress, no accessory muscle use. Abdomen--normal bowel sounds and soft, nontender and nondistended, no hernias or masses, no organomegaly. Extremities--no cyanosis, clubbing or edema. There are good distal pulses b/l. Dermatologic--normal skin turgor, normal color, warm and dry, no abnormal lymph nodes, no rash. Neurologic--cranial nerves II through XII grossly intact, motor and sensory examination normal. Rheumatologic--normal range of motion, nontender, muscles and joints. Psychiatric--normal affect. Assessment and Plan: Urinary tract infection-- Ceftriaxone 1 g IV daily. Intractable nausea and vomiting-- NSS + KCl 20 mEq at 100 mils per hour. K-Phos 24 mmol IV 1. BMP, magnesium and phosphorus levels in the a.m. Ex Tobacco use/marijuana use disorder/probable cannabinoid hyperemesis syndrome-- Advised patient the need for cessation. Level of Care Med/Surg Advanced Directives Existing Advance Directive: No Existing Living Will: No Existing Power of Athletic Equipment Manager: No Resuscitation Status FULL RESUSCITATION VTE Prophylaxis VTE Risk Assessment Done? Y/N: Yes Risk Level: Low Given or contraindicated: SCD's Social Service Consult None Apply
[2017-05-15 21:28] VITALS: BP 112/73; PULSE 80; TEMP 37.1; O2SAT 95
[2017-05-15] MEDS: NSS + 20MEQ KCL 1000ML 1,000 ML IV SCH (21:28)
[2017-05-15 21:39] VITALS: Ht 157.5 cm; Wt 50.4 kg
[2017-05-15] MEDS: ZOLPIDEM TARTRATE 5 MG TAB PO PRN (23:04)
[2017-05-15 23:50] VITALS: BP 118/77; PULSE 78; TEMP 37; O2SAT 98
[2017-05-16 00:10] VITALS: O2SAT 99
[2017-05-16] MEDS: ZOLPIDEM TARTRATE 5 MG TAB PO PRN (00:51)
[2017-05-16 05:56] LABS: BASO % 0.2 %; BASO ABS # 0.02 K/uL (0-0.2); COMPLETE YES; EOS % 0.6 %; HEMATOCRIT 34.8 % (37-47); IG% 0.3 %; LYMPH % 10.3 %; LYMPH ABS # 1.12 K/uL (1.2-3.4); MEAN CELL VOLUME 94.8 fL (80-100); MEAN CORPUSCULAR HEMOGLOBIN 33.2 pg (25-34); MEAN CORPUSCULAR HGB CONC 35.1 g/dl (32-36); MEAN PLATELET VOLUME 10.4 fL (7.4-10.4); MONO % 14.6 %; PLATELET COUNT 192 K/uL (130-400); RED BLOOD COUNT 3.67 M/uL (4.2-5.4); WHITE BLOOD COUNT 10.85 K/uL (4.8-10.8)
[2017-05-16 06:27] LABS: BUN/CREATININE RATIO 13.1 (10-20); CALCIUM 8.5 mg/dl (8.5-10.1); CREATININE 0.72 mg/dl (0.60-1.20); POTASSIUM 3.8 mmol/L (3.5-5.1)
[2017-05-16] MEDS: NSS + 20MEQ KCL 1000ML 1,000 ML IV SCH (06:45)
[2017-05-16 07:59] VITALS: BP 119/77; PULSE 60; TEMP 37.1; O2SAT 97
[2017-05-16] MEDS ORDERED: CEFTRIAXONE SOD INJ 1 GM in DEXTROSE 5% ADD-VANTAGE 50ML 50 ML IV SCH (09:00)
[2017-05-16 11:41] LABS: PHOSPHORUS 1.8 mg/dl (2.5-4.9)
--- NOTE | 2017-05-16 13:09 | Discharge Instructions ---
Discharge Instructions Date of Service May 16, 2017. Admission Reason for Admission: Dehydration,Vomiting Discharge Discharge Diagnosis / Problem: UTI Discharge Goals Goal(s): Decrease discomfort, Improve disease control Activity Recommendations Activity Limitations: resume your previous activity . Instructions / Follow-Up Instructions / Follow-Up You should follow up with your primary care provider in about a week. The cephalexin is to treat your UTI instead of the Bactrim which should be discontinued. The omeprazole is to treat gastritis which may have contributed to the vomiting. Please take for 2 weeks and follow up with your provider if you still have nausea or abdominal pain after that time. Current Hospital Diet Patient's current hospital diet: Regular Diet Discharge Diet Recommended Diet: Regular Diet Pending Studies Studies pending at discharge: no Medical Emergencies . Who to Call and When: Medical Emergencies: If at any time you feel your situation is an emergency, please call 911 immediately. . Non-Emergent Contact Non-Emergency issues call your: Primary Care Provider Call Non-Emergent contact if: you have a fever, temperature is above 100.5, you have any medication questions you begin to vomit again . Past History Medical & Surgical History: (1) Acute gastritis (2) Dehydration (3) Hypophosphatemia (4) Urinary tract infection . "Provider Documentation" section prepared by Kenya Chavez. Attending Attestation: Pt seen/examined on day of discharge; discharge care plan discussed; I agree w/ Ms. Chaevz's discharge instructions as outlined. Satya Ann MD . VTE Core Measure Inpt VTE Proph given/why not?: SCD's
[2017-05-16 13:20] VITALS: BP 119/77; PULSE 60; TEMP 37.1; O2SAT 97
[2017-05-16] MEDS ORDERED: POT PHOSPHATE MONOBASIC W/ SOD TAB PO SCH (13:30)
[2017-05-16] MEDS ORDERED: CEPH-571 PO (13:39)
[2017-05-16] MEDS ORDERED: OMEP40CA41 PO (13:39)
[2017-05-16] MEDS ORDERED: POTTAB2 PO (13:39)
--- NOTE | 2017-05-16 13:54 | Discharge Summary ---
Discharge Summary Date of Service May 16, 2017. (Kenya Chavez CRNP) Discharge Summary Admission Date: May 15, 2017 at 19:40 Discharge Date: May 16, 2017 Discharge Disposition: Home Principal Diagnosis: vomiting, uti (Kenya Chavez CRNP) Medication Reconciliation New Medications: Cephalexin (Keflex) 500 Mg Cap 1 CAP PO BID for uti for 5 Days, #10 CAP Omeprazole (Prilosec) 40 Mg Cap 1 CAP PO DAILY for 14 Days, #14 CAP 0 Refills Pot Phosphate Monobasic W/ Sod (Phospha 250 Neutral) 1 Tab Tab 1 TAB PO TID for 7 Days, #21 DOSE Discontinued Medications: Ondasetron Odt (Zofran Odt) 4 Mg Tab 4 MG SL Q6H for Nausea, #6 TAB Sulfa/Trimethoprim (Bactrim Ds 800MG/160MG) Tab 1 TAB PO BID for 10 Days, #20 TAB Discharge Exam Review of Systems: Constitutional: No fever, No chills Abdomen: No pain, No nausea, No vomiting, No diarrhea Genitourinary - Female: No dysuria Physical Exam: General Appearance: WD/WN, no apparent distress Eyes: normal inspection Respiratory/Chest: chest non-tender, lungs clear, normal breath sounds, no respiratory distress, no accessory muscle use Cardiovascular: regular rate, rhythm, no edema, no gallop, no murmur Abdomen / GI: normal bowel sounds, non tender, soft Neurologic/Psychiatric: alert, normal mood/affect, oriented x 3 Skin: normal color, warm/dry (Kenya Chavez CRNP) Hospital Course (1) Acute gastritis (2) Urinary tract infection (3) Hypophosphatemia (4) Dehydration Ms. Grijalva is a 27 y/o female with PMHx of GERD, Tobacco Use, and Marijuana Use who presented to the ED for intractable vomiting that started yesterday morning. Urinary Tract Infection: - Leukocytosis improving - UCx from initial visit with multiple organisms and skin joce - repeat obtained in ED but will likely be unremarkable as she has received ABx - continues to incubate for growing pinpoint cultures - Ceftriaxone 1 g IV daily changed to Keflex 500 mg BID for home Dehydration/Intractable Vomiting/Hypokalemia/Hypophosphatemia: - NSS + 20 mEq KCl at 100 mL/hr - KPhos 24 mmol IV x 1, repeat labs showed continued hypophosphatemia, Phospha neutral replacement and script for home - possible component of gastritis, home with ppi for two weeks Tobacco Use/Marijuana Use: - Consideration for cannabinoid hyperemesis - denies previous episodes with use DVT Prophylaxis: SCDs Code Status: FULL RESUSCITATION Total Time Spent: Less than 30 minutes This includes examination of the patient, discharge planning, medication reconciliation, and communication with other providers. (Kenya Chavez CRNP) Attending Discharge Note & Attestation: Pt seen/examined, chart reviewed, care plan d/w CHIEF PASSENGER SHIP STEWARD/STEWARDESSFILIPE Chavez. I agree w/ the [facility] components of her discharge summary. 27yo female with h/o GERD and fairly regular THC use who presented with intractable vomiting. The vomiting gradually resolved with supportive care measures. Differential - UTI vs medication side effect vs gastritis vs cannibis hyperemesis syndrome. Her stay was complicated by significant hypophosphatemia and hypokalemia. Discharge exam gen - NAD mouth - MMM heart - RRR lungs - CTA b/l abd - mildly tender to palpation high epigastric region, BS+, no HSM, soft ext - no edema D/c to home with course of antibiotics for possible UTI, course of phosphate replacement, and 2 weeks of PPI for suspected gastritis. Satya Ann MD (Satya Ann MD) Discharge Instructions Please refer to the electronic Patient Visit Report (Discharge Instructions) for additional information. (Kenya Chavez CRNP)
== END 2017-05-16 13:48 | disposition home or self-care (01) ==
LOC: C.EDB 16:28 → C.MED 19:40 → ENRESERV 20:01
PROVIDERS: ADMIT Hospitalist; ATTEND Internal Medicine
DX: K29.00 Acute gastritis without bleeding (principal); N39.0 Urinary tract infection, site not specified; E86.0 Dehydration; K21.9 Gastro-esophageal reflux disease without esophagitis; F17.200 Nicotine dependence, unspecified, uncomplicated; Z79.899 Other long term (current) drug therapy; F12.90 Cannabis use, unspecified, uncomplicated